=== PATIENT | female | born 1965 | race African-American/Black ===

== ENCOUNTER 2016-12-30 12:48 | Inpatient (IN) | payer MEDICAID ==
[~2016-12-30] VITALS: Ht 165.1 cm; Wt 109.8 kg
[~2016-12-30 12:48] MED LIST: FERR-43 PO; LEVA15HF4 INH
[2016-12-30] MEDS ORDERED: KETOROLAC 30MG/ML VIAL IV STA (13:32)
[2016-12-30 14:27] LABS: BASOPHILS % 1.5 % (0.0-2.0); HEMATOCRIT. 21.4 % (36.0-48.0); LYMPHOCYTES % 28.3 % (20.0-50.0); MEAN CORPUSCULAR HEMOGLOBIN 22.3 pg (28.0-32.0); MEAN CORPUSCULAR VOLUME 73.5 fL (81.0-99.0); MEAN PLATELET VOLUME 7.5 fl (7.4-10.4); MONOCYTES % 8.2 % (2.0-8.0); PLATELET 497 x1000/uL (130-400); RED BLOOD CELL COUNT 2.91 mill/uL (4.2-5.4); RED CELL DISTRIBUTION WIDTH 18.9 % (11.6-14.6)
[2016-12-30 14:29] LABS: CHLORIDE 103 mEq/L (98-107)
[2016-12-30 14:32] LABS: D-DIMER 0.39 mg/L FEU (<0.50); PROTHROMBIN TIME 10.1 sec (9.4-11.6)
[2016-12-30 14:41] LABS: HCG SCREEN NEGATIVE
[2016-12-30 14:44] LABS: CARBON DIOXIDE 33 mEq/L (21-32)
[2016-12-30 14:47] LABS: HEMOGLOBIN. 6.5 g/dL (12.0-16.0)
[2016-12-30] MEDS ORDERED: CLONIDINE 0.1MG TABLET PO PRN (16:15)
[2016-12-30] MEDS ORDERED: LORAZEPAM 2MG/ML CPJ IV PRN (16:15)
[2016-12-30] MEDS ORDERED: DIPHENHYDRAMINE 50MG/ML VIAL IV PRN (16:15)
[2016-12-30] MEDS ORDERED: NITROGLYCERIN 0.4MG TABLET SL SL PRN (16:15)
[2016-12-30] MEDS ORDERED: MAGNESIUM/ALUMINUM HYDROXIDE/SIMETHICONE 30ML UDC PO PRN (16:15)
[2016-12-30] MEDS ORDERED: NA PHOS,M-B/NA PHOS,DI-BA ENEMA 118ML PR PRN (16:15)
[2016-12-30] MEDS ORDERED: ZOLPIDEM TARTRATE 5MG TABLET PO PRN (16:15)
[2016-12-30] MEDS ORDERED: KETOROLAC 15MG/ML VIAL IV PRN (16:15)
[2016-12-30] MEDS ORDERED: IPRATROPIUM/ALBUTEROL 0.5-3(2.5)MG/3ML NEB INH PRN (16:15)
[2016-12-30] MEDS ORDERED: GUAIFENESIN 200MG/10ML SUGAR FREE UDC PO PRN (16:15)
[2016-12-30] MEDS ORDERED: ONDANSETRON HCL 4MG/2ML VIAL IV PRN (16:15)
[2016-12-30] MEDS ORDERED: DOCUSATE SODIUM 100MG CAPSULE PO PRN (16:15)
[2016-12-30] MEDS ORDERED: ACETAMINOPHEN 325MG TABLET PO PRN (16:15)
[2016-12-30 17:11] LABS: FOLIC ACID (FOLATE) SERUM 5.8 ng/mL (>5.38)
[2016-12-30 21:00] VITALS: BP 149/80
[2016-12-30 23:35] VITALS: BP 142/81
[2016-12-31] VITALS: BP_SYST 128; BP_SYST 142; BP_DIAS 65; BP_DIAS 81
[2016-12-31 00:35] VITALS: BP 125/75
[2016-12-31 01:30] VITALS: BP 126/62
[2016-12-31 02:15] VITALS: BP 136/67
[2016-12-31 04:00] VITALS: BP 129/68
[2016-12-31 07:00] LABS: HEMATOCRIT 25.9 % (36.0-48.0)
[2016-12-31 08:00] VITALS: BP 127/68
[2016-12-31] MEDS ORDERED: PANTOPRAZOLE SODIUM 40 MG/VIAL IV SCH (09:00)
== END 2016-12-31 12:00 | disposition home or self-care (01) | DRG 203 ==
LOC: ER 13:56 → 7WST 15:42 → EDBEDREQ 15:44 → ENRESERV 19:31 → 7WST 22:13
PROVIDERS: ADMIT Internal Medicine; ATTEND Internal Medicine
PROC: 30233N1 Transfusion of Nonautologous Red Blood Cells into Peripheral Vein, Percutaneous Approach (ICD-10-PCS; principal; 2016-12-30)
DX: R07.89 Other chest pain (principal); E44.1 Mild protein-calorie malnutrition; D64.9 Anemia, unspecified; E66.9 Obesity, unspecified; J45.909 Unspecified asthma, uncomplicated; N92.0 Excessive and frequent menstruation with regular cycle; Z90.49 Acquired absence of other specified parts of digestive tract; Z79.899 Other long term (current) drug therapy; Z68.41 Body mass index [BMI] 40.0-44.9, adult; D25.9 Leiomyoma of uterus, unspecified
CPT/HCPCS: 36415; 71010; 76830; 76856; 80053; 80061; 82607; 82746; 83036; 83540; 83550; 84703; 85014; 85018; 85025; 85379; 85610; 86850; 86900; 86920; 93005; 93970; 96374; 99285; C9113; J1885; J7050; P9016

== ENCOUNTER 2017-04-13 14:25 | Emergency (ER) | payer MEDICAID ==
[~2017-04-13] VITALS: Ht 162.6 cm; Wt 109.0 kg
[2017-04-13] MEDS ORDERED: PREDNISONE 20MG TABLET PO STA (15:34)
[2017-04-13] MEDS ORDERED: IPRATROPIUM BROMIDE (0.02%) 0.5MG/2.5ML NEB HHN STA (15:34)
[2017-04-13] MEDS ORDERED: ALBUTEROL (0.083%) 2.5MG/3ML NEB HHN STA (15:34)
[2017-04-13 16:03] LABS: BASOPHILS % 1.3 % (0.0-2.0); EOSINOPHILS % 3.3 % (0.0-5.0); HEMATOCRIT. 27.4 % (36.0-48.0); LYMPHOCYTES % 36.6 % (20.0-50.0); MEAN CORPUSCULAR HEMOGLOBIN 27.9 pg (28.0-32.0); MEAN CORPUSCULAR VOLUME 85.4 fL (81.0-99.0); MEAN PLATELET VOLUME 7.3 fl (7.4-10.4); MONOCYTES % 7.5 % (2.0-8.0); NEUTROPHILS % 51.3 % (40.0-76.0); PLATELET 380 x1000/uL (130-400); RED BLOOD CELL COUNT 3.21 mill/uL (4.2-5.4); RED CELL DISTRIBUTION WIDTH 14.9 % (11.6-14.6)
[2017-04-13 16:14] LABS: CARBON DIOXIDE 33 mEq/L (21-32); CHLORIDE 104 mEq/L (98-107)
[2017-04-13 18:00] VITALS: BP 142/75
== END 2017-04-13 18:02 | disposition home or self-care (01) ==
LOC: ER 15:00
DX: J45.901 Unspecified asthma with (acute) exacerbation (principal); D64.9 Anemia, unspecified; R06.02 Shortness of breath
CPT/HCPCS: 36415; 80053; 85025; 93005; 94640; 99285; J7512; J7611

== ENCOUNTER 2017-04-17 17:19 | Emergency (ER) | payer MEDICAID ==
[~2017-04-17] VITALS: Ht 162.6 cm; Wt 114.0 kg
[2017-04-17] MEDS ORDERED: IPRATROPIUM/ALBUTEROL 0.5-3(2.5)MG/3ML NEB HHN ONE (18:15)
[2017-04-17] MEDS ORDERED: METHYLPREDNISOLONE SOD SUCC 125 MG/2 ML VIAL IV ONE (18:15)
[2017-04-17 19:33] VITALS: BP 141/89
== END 2017-04-17 22:37 | disposition home or self-care (01) ==
LOC: ER 18:15
DX: J09.X2 Influenza due to identified novel influenza A virus with other respiratory manifestations (principal); J45.901 Unspecified asthma with (acute) exacerbation
CPT/HCPCS: 71045; 87804; 94640; 96374; 99285; J2930; J7620

== ENCOUNTER 2017-04-28 16:00 | Inpatient (IN) | payer MEDICAID ==
[~2017-04-28] VITALS: Ht 165.1 cm; Wt 124.3 kg
[2017-04-28] MEDS ORDERED: ASPIRIN 81MG TABLET PO STA (20:23)
[2017-04-28 20:48] LABS: BASOPHILS % 1.4 % (0.0-2.0); EOSINOPHILS % 2.9 % (0.0-5.0); HEMATOCRIT. 33.5 % (36.0-48.0); HEMOGLOBIN. 10.7 g/dL (12.0-16.0); MEAN CORPUSCULAR HEMOGLOBIN 27.6 pg (28.0-32.0); MEAN PLATELET VOLUME 6.9 fl (7.4-10.4); MONOCYTES % 6.8 % (2.0-8.0); NEUTROPHILS % 50.9 % (40.0-76.0); PLATELET 461 x1000/uL (130-400); RED BLOOD CELL COUNT 3.89 mill/uL (4.2-5.4); RED CELL DISTRIBUTION WIDTH 15.9 % (11.6-14.6)
[2017-04-28 20:49] LABS: CHLORIDE 101 mEq/L (98-107)
[2017-04-28 20:53] LABS: D-DIMER 0.28 mg/L FEU (<0.50); INR 0.9; PARTIAL THROMBOPLASTIN TIME 25.1 sec (23.4-31.0); PROTHROMBIN TIME 9.9 sec (9.4-11.6)
[2017-04-28 21:00] LABS: CARBON DIOXIDE 33 mEq/L (21-32); TROPONIN I < 0.02 ng/mL (0.00-0.04)
[2017-04-28] MEDS ORDERED: MAGNESIUM/ALUMINUM HYDROXIDE/SIMETHICONE 30ML UDC PO PRN (23:45)
[2017-04-28] MEDS ORDERED: ONDANSETRON HCL 4MG/2ML VIAL IV PRN (23:45)
[2017-04-28] MEDS ORDERED: IPRATROPIUM/ALBUTEROL 0.5-3(2.5)MG/3ML NEB INH PRN (23:45)
[2017-04-28] MEDS ORDERED: ACETAMINOPHEN 325MG TABLET PO PRN (23:45)
[2017-04-28] MEDS ORDERED: CLONIDINE 0.1MG TABLET PO PRN (23:45)
[2017-04-28] MEDS ORDERED: HYDROCODONE/ACETAMINOPHEN 5/325MG TABLET PO PRN (23:45)
[2017-04-28 23:54] LABS: CLARITY URINE CLOUDY (CLEAR); COLOR URINE YELLOW (YELLOW); KETONES URINE NEGATIVE (NEGATIVE); LEUKOCYTE ESTERASE URINE 1+ (NEGATIVE); NITRITE URINE NEGATIVE (NEGATIVE); OCCULT BLOOD URINE NEGATIVE (NEGATIVE); PH URINE 7.5 (4.5-8.0); PROTEIN URINE NEGATIVE (NEGATIVE)
[2017-04-29 00:08] LABS: *AMPHETAMINES SCREEN URINE NEGATIVE (NEGATIVE); *BARBITURATES SCREEN URINE NEGATIVE (NEGATIVE); *BENZODIAZEPINES SCREEN URINE NEGATIVE (NEGATIVE); *COCAINE SCREEN URINE NEGATIVE (NEGATIVE); CANNABINOID URINE SCREEN NEGATIVE (NEGATIVE); METHADONE URINE SCREEN NEGATIVE (NEGATIVE); OPIATES URINE SCREEN NEGATIVE (NEGATIVE); PHENCYCLIDINE URINE SCREEN NEGATIVE (NEGATIVE)
[2017-04-29 00:44] LABS: CHLORIDE 101 mEq/L (98-107)
[2017-04-29 00:49] LABS: CARBON DIOXIDE 32 mEq/L (21-32)
[2017-04-29 04:00] VITALS: BP_SYST 121; BP_DIAS 28; BP_DIAS 58
[2017-04-29 07:16] LABS: EOSINOPHILS % 3.1 % (0.0-5.0); HEMATOCRIT. 30.1 % (36.0-48.0); HEMOGLOBIN. 9.9 g/dL (12.0-16.0); MEAN CORPUSCULAR HEMOGLOBIN 28.4 pg (28.0-32.0); MEAN CORPUSCULAR VOLUME 86.3 fL (81.0-99.0); MEAN PLATELET VOLUME 7.1 fl (7.4-10.4); MONOCYTES % 9.5 % (2.0-8.0); NEUTROPHILS % 47.4 % (40.0-76.0); PLATELET 378 x1000/uL (130-400); RED BLOOD CELL COUNT 3.48 mill/uL (4.2-5.4); RED CELL DISTRIBUTION WIDTH 15.6 % (11.6-14.6)
[2017-04-29 08:08] VITALS: BP 127/68
[2017-04-29] MEDS: ASPIRIN 81MG EC TABLET PO SCH (08:15)
[2017-04-29] MEDS: ENOXAPARIN 30MG/0.3ML SYR SUBCUT SCH ×2 (08:16→21:37)
[2017-04-29 08:40] LABS: CREATINE KINASE 29 IU/L (26-192); HDL CHOLESTEROL 29 mg/dL (40-59); LDL CHOLESTEROL 120 mg/dL (5-100)
[2017-04-29 08:41] LABS: CREATINE KINASE MB FRACTION < 0.5 ng/mL (0.5-3.6); TROPONIN I < 0.02 ng/mL (0.00-0.04)
[2017-04-29] MEDS ORDERED: POTASSIUM CHLORIDE 20MEQ TABLET SR PO SCH (11:30)
[2017-04-29 12:00] VITALS: BP 118/69
[2017-04-29] MEDS: CEFTRIAXONE 1,000 MG in DEXTROSE 5% WATER 50 ML IV SCH (14:48)
[2017-04-29 16:00] VITALS: BP 121/71
[2017-04-29 16:48] LABS: CREATINE KINASE 35 IU/L (26-192); CREATINE KINASE MB FRACTION < 0.5 ng/mL (0.5-3.6); TROPONIN I < 0.02 ng/mL (0.00-0.04)
[2017-04-29 20:00] VITALS: BP 130/65
[2017-04-29] MEDS ORDERED: ATORVASTATIN CALCIUM 10MG TABLET PO SCH (21:00)
[2017-04-30] VITALS: BP 134/66
[2017-04-30 04:00] VITALS: BP 132/74
[2017-04-30 07:10] LABS: BASOPHILS % 1.2 % (0.0-2.0); EOSINOPHILS % 2.5 % (0.0-5.0); HEMATOCRIT. 31.1 % (36.0-48.0); HEMOGLOBIN. 10.2 g/dL (12.0-16.0); MEAN CORPUSCULAR HEMOGLOBIN 28.2 pg (28.0-32.0); MEAN CORPUSCULAR VOLUME 85.8 fL (81.0-99.0); MEAN PLATELET VOLUME 7.2 fl (7.4-10.4); MONOCYTES % 9.6 % (2.0-8.0); NEUTROPHILS % 50.7 % (40.0-76.0); PLATELET 381 x1000/uL (130-400); RED BLOOD CELL COUNT 3.62 mill/uL (4.2-5.4); RED CELL DISTRIBUTION WIDTH 15.5 % (11.6-14.6)
[2017-04-30 07:15] LABS: CARBON DIOXIDE 29 mEq/L (21-32); CHLORIDE 103 mEq/L (98-107)
[2017-04-30 08:00] VITALS: BP 111/57
[2017-04-30] MEDS: ASPIRIN 81MG EC TABLET PO SCH (08:01)
[2017-04-30] MEDS: ENOXAPARIN 30MG/0.3ML SYR SUBCUT SCH (08:01)
[2017-04-30] MEDS: CEFTRIAXONE 1,000 MG in DEXTROSE 5% WATER 50 ML IV SCH (08:01)
[2017-04-30 13:26] VITALS: BP 115/54
== END 2017-04-30 14:00 | disposition home or self-care (01) | DRG 198 ==
LOC: ER 16:00 → EDBEDREQ 23:36 → EDBEDREQTM 23:36 → 8WST 04-29 03:41
PROVIDERS: ADMIT Internal Medicine; ATTEND Internal Medicine
DX: I24.9 Acute ischemic heart disease, unspecified (principal); Z68.42 Body mass index [BMI] 45.0-49.9, adult; I10 Essential (primary) hypertension; N39.0 Urinary tract infection, site not specified; J45.909 Unspecified asthma, uncomplicated; E87.6 Hypokalemia; D64.9 Anemia, unspecified; Z79.899 Other long term (current) drug therapy; E66.01 Morbid (severe) obesity due to excess calories
CPT/HCPCS: 36415; 71045; 80048; 80053; 80061; 80305; 81001; 82550; 82553; 83690; 83735; 83880; 84443; 84484; 85025; 85379; 85610; 85730; 87086; 93005; 93306; 93970; 96372; 96374; 99285; J0696; J1650; J7040; J7060

== ENCOUNTER 2017-08-28 23:12 | Emergency (ER) | payer MEDICAID ==
[~2017-08-28] VITALS: Ht 165.1 cm; Wt 109.9 kg
[2017-08-29] MEDS ORDERED: ASPIRIN 81MG TABLET PO ONE (02:15)
[2017-08-29] MEDS ORDERED: VISCOUS LIDOCAINE 2% 15 ML UDC PO ONE (02:15)
[2017-08-29] MEDS ORDERED: MAGNESIUM/ALUMINUM HYDROXIDE/SIMETHICONE 30ML UDC PO ONE (02:15)
[2017-08-29 02:37] LABS: BASOPHILS % 1.1 % (0.0-2.0); HEMOGLOBIN. 8.3 g/dL (12.0-16.0); LYMPHOCYTES % 44.4 % (20.0-50.0); MEAN CORPUSCULAR HEMOGLOBIN 26.2 pg (28.0-32.0); MEAN PLATELET VOLUME 6.9 fl (7.4-10.4); MONOCYTES % 8.6 % (2.0-8.0); NEUTROPHILS % 42.9 % (40.0-76.0); PLATELET 508 x1000/uL (130-400); RED BLOOD CELL COUNT 3.17 mill/uL (4.2-5.4); RED CELL DISTRIBUTION WIDTH 17.5 % (11.6-14.6)
[2017-08-29 02:39] LABS: CHLORIDE 107 mEq/L (98-107)
[2017-08-29 02:41] LABS: PROTHROMBIN TIME 10.3 sec (9.4-11.6)
[2017-08-29 03:31] LABS: *AMPHETAMINES SCREEN URINE NEGATIVE (NEGATIVE); *BARBITURATES SCREEN URINE NEGATIVE (NEGATIVE); *BENZODIAZEPINES SCREEN URINE NEGATIVE (NEGATIVE); *COCAINE SCREEN URINE NEGATIVE (NEGATIVE); METHADONE URINE SCREEN NEGATIVE (NEGATIVE); OPIATES URINE SCREEN NEGATIVE (NEGATIVE)
[2017-08-29 03:32] LABS: CANNABINOID URINE SCREEN NEGATIVE (NEGATIVE); PHENCYCLIDINE URINE SCREEN NEGATIVE (NEGATIVE)
[2017-08-29 05:45] VITALS: BP 138/60
== END 2017-08-29 06:13 | disposition home or self-care (01) ==
LOC: ER 23:12
DX: R07.9 Chest pain, unspecified (principal); J45.909 Unspecified asthma, uncomplicated; Z79.82 Long term (current) use of aspirin
CPT/HCPCS: 36415; 71045; 80053; 80305; 83880; 84484; 85025; 85610; 93005; 99285

== ENCOUNTER 2017-09-28 01:03 | Emergency (ER) | payer MEDICAID ==
[~2017-09-28] VITALS: Ht 165.1 cm; Wt 111.0 kg
[2017-09-28] MEDS ORDERED: IBUPROFEN 400MG TABLET PO NR (02:44)
[2017-09-28] MEDS ORDERED: IBUPROFEN 400MG TABLET ONE (03:15)
[2017-09-28 05:42] LABS: CHLORIDE 104 mEq/L (98-107)
[2017-09-28 05:47] LABS: BASOPHILS % 0.8 % (0.0-2.0); EOSINOPHILS % 3.4 % (0.0-5.0); HEMATOCRIT. 24.8 % (36.0-48.0); LYMPHOCYTES % 33.7 % (20.0-50.0); MEAN CORPUSCULAR HEMOGLOBIN 25.7 pg (28.0-32.0); MEAN CORPUSCULAR VOLUME 79.9 fL (81.0-99.0); MONOCYTES % 8.7 % (2.0-8.0); NEUTROPHILS % 53.4 % (40.0-76.0); PLATELET 460 x1000/uL (130-400); RED BLOOD CELL COUNT 3.11 mill/uL (4.2-5.4); RED CELL DISTRIBUTION WIDTH 17.4 % (11.6-14.6)
[2017-09-28] MEDS ORDERED: POTASSIUM CHLORIDE 20MEQ TABLET SR PO ONE (06:15)
[2017-09-28 07:00] VITALS: BP 128/76
== END 2017-09-28 07:09 | disposition home or self-care (01) ==
LOC: ER 01:03
DX: R07.2 Precordial pain (principal); E87.6 Hypokalemia; R06.02 Shortness of breath; J45.909 Unspecified asthma, uncomplicated
CPT/HCPCS: 36415; 71045; 80048; 84484; 85025; 93005; 99285

== ENCOUNTER 2017-12-28 18:46 | Emergency (ER) | payer MEDICAID ==
[~2017-12-28 18:46] MED LIST changes: +FERR325T23 PO; +FOLI-43 PO; +THIA100T72 PO
== END 2017-12-28 20:00 | disposition left against medical advice (07) ==
LOC: ER 18:46
DX: R53.1 Weakness (principal); Z53.21 Procedure and treatment not carried out due to patient leaving prior to being seen by health care provider

== ENCOUNTER 2017-12-29 15:46 | Emergency (ER) | payer MEDICAID ==
[~2017-12-29] VITALS: Ht 165.1 cm; Wt 106.8 kg
[2017-12-29 19:50] LABS: BASOPHILS % 1.2 % (0.0-2.0); EOSINOPHILS % 2.6 % (0.0-5.0); LYMPHOCYTES % 28.5 % (20.0-50.0); MEAN CORPUSCULAR HEMOGLOBIN 27.5 pg (28.0-32.0); MEAN CORPUSCULAR VOLUME 86.2 fL (81.0-99.0); MEAN PLATELET VOLUME 7.2 fl (7.4-10.4); MONOCYTES % 5.3 % (2.0-8.0); NEUTROPHILS % 62.4 % (40.0-76.0); PLATELET 622 x1000/uL (130-400); RED CELL DISTRIBUTION WIDTH 20.4 % (11.6-14.6)
[2017-12-29 19:54] LABS: CHLORIDE 102 mEq/L (98-107)
[2017-12-29 20:06] LABS: HCG SCREEN NEGATIVE
[2017-12-29] MEDS ORDERED: POTASSIUM CHLORIDE 20MEQ TABLET SR PO NR (20:15)
[2017-12-29 22:41] VITALS: BP 124/62
== END 2017-12-29 22:43 | disposition home or self-care (01) ==
LOC: ER 16:43 → EDBEDREQ 19:29 → ER 22:43 → CANBEDREQ 12-30 01:42
DX: R53.1 Weakness (principal); D64.9 Anemia, unspecified; E87.6 Hypokalemia; J45.909 Unspecified asthma, uncomplicated; R03.0 Elevated blood-pressure reading, without diagnosis of hypertension; D25.9 Leiomyoma of uterus, unspecified; Z90.49 Acquired absence of other specified parts of digestive tract; Z98.890 Other specified postprocedural states
CPT/HCPCS: 36415; 80053; 83880; 84484; 84703; 85025; 86850; 86900; 86901; 93005; 99285; Z7610

== ENCOUNTER 2018-02-26 16:55 | Emergency (ER) | payer MEDICAID ==
[~2018-02-26] VITALS: Ht 165.1 cm; Wt 111.0 kg
[2018-02-26 18:44] LABS: BASOPHILS % 1.4 % (0.0-2.0); EOSINOPHILS % 3.3 % (0.0-5.0); HEMATOCRIT. 27.6 % (36.0-48.0); HEMOGLOBIN. 8.6 g/dL (12.0-16.0); LYMPHOCYTES % 31.6 % (20.0-50.0); MEAN CORPUSCULAR HEMOGLOBIN 25.6 pg (28.0-32.0); MEAN CORPUSCULAR VOLUME 82.1 fL (81.0-99.0); MEAN PLATELET VOLUME 7.5 fl (7.4-10.4); MONOCYTES % 9.2 % (2.0-8.0); NEUTROPHILS % 54.5 % (40.0-76.0); PLATELET 445 x1000/uL (130-400); RED BLOOD CELL COUNT 3.36 mill/uL (4.2-5.4); RED CELL DISTRIBUTION WIDTH 18.3 % (11.6-14.6)
[2018-02-26 18:46] LABS: CHLORIDE 105 mEq/L (98-107)
[2018-02-26 18:47] LABS: PROTHROMBIN TIME 10.1 sec (9.1-11.1)
[2018-02-26 20:39] VITALS: BP 143/78
== END 2018-02-26 20:39 | disposition home or self-care (01) ==
LOC: ER 16:55
DX: D64.9 Anemia, unspecified (principal); D25.9 Leiomyoma of uterus, unspecified; R03.0 Elevated blood-pressure reading, without diagnosis of hypertension
CPT/HCPCS: 36415; 86850; 86900; 99284

== ENCOUNTER 2018-10-17 13:39 | Emergency (ER) | payer MEDICAID ==
[~2018-10-17] VITALS: Ht 165.1 cm; Wt 107.0 kg
[2018-10-17] MEDS ORDERED: ALBUTEROL (0.083%) 2.5MG/3ML NEB HHN STA (16:06)
[2018-10-17] MEDS ORDERED: IPRATROPIUM BROMIDE (0.02%) 0.5MG/2.5ML NEB HHN STA (16:06)
[2018-10-17] MEDS ORDERED: ASPIRIN 81MG TABLET PO ONE (16:15)
[2018-10-17 16:36] LABS: EOSINOPHILS % 2.8 % (0.0-5.0); HEMATOCRIT. 28.4 % (36.0-48.0); HEMOGLOBIN. 8.7 g/dL (12.0-16.0); LYMPHOCYTES % 33.8 % (20.0-50.0); MEAN CORPUSCULAR HEMOGLOBIN 23.9 pg (28.0-32.0); MEAN PLATELET VOLUME 7.5 fl (7.4-10.4); NEUTROPHILS % 53.4 % (40.0-76.0); PLATELET 550 x1000/uL (130-400); RED BLOOD CELL COUNT 3.64 mill/uL (4.2-5.4)
[2018-10-17 16:41] LABS: CHLORIDE 104 mEq/L (98-107)
[2018-10-17] MEDS ORDERED: VISCOUS LIDOCAINE 2% 15 ML UDC PO ONE (17:30)
[2018-10-17] MEDS ORDERED: MAGNESIUM/ALUMINUM HYDROXIDE/SIMETHICONE 30ML UDC PO ONE (17:30)
[2018-10-17] MEDS ORDERED: KETOROLAC 30MG/ML VIAL IV ONE (17:30)
[2018-10-17 18:47] VITALS: BP 127/56
[2018-10-17] MEDS ORDERED: PREDNISONE 20MG TABLET PO ONE (19:00)
== END 2018-10-17 19:22 | disposition home or self-care (01) ==
LOC: ER 13:39
DX: J45.901 Unspecified asthma with (acute) exacerbation (principal); D64.9 Anemia, unspecified
CPT/HCPCS: 36415; 71045; 80053; 83880; 84484; 85025; 93005; 94640; 99284; J7512; J7611; Z7610

== ENCOUNTER 2018-11-10 13:23 | Emergency (ER) | payer MEDICAID ==
[~2018-11-10] VITALS: Ht 165.1 cm; Wt 104.0 kg
[2018-11-10] MEDS ORDERED: METHYLPREDNISOLONE SOD SUCC 125 MG/2 ML VIAL IV STA (14:18)
[2018-11-10] MEDS ORDERED: SODIUM CHLORIDE 0.9% 1,000 ML IV ONE (14:18)
[2018-11-10] MEDS ORDERED: LEVOFLOXACIN 500MG PREMIX 100 ML IV ONE (14:30)
[2018-11-10] MEDS ORDERED: KETOROLAC 30MG/ML VIAL IV ONE (14:30)
[2018-11-10] MEDS ORDERED: MORPHINE SULFATE 4 MG/ML CPJ (NOT FOR IM USE) IV ONE (14:30)
[2018-11-10] MEDS ORDERED: IPRATROPIUM/ALBUTEROL 0.5-3(2.5)MG/3ML NEB HHN ONE (14:30)
[2018-11-10] MEDS ORDERED: ONDANSETRON HCL 4MG/2ML INJ IV ONE (14:30)
[2018-11-10] MEDS ORDERED: LEVOFLOXACIN 500MG TABLET PO ONE (15:00)
[2018-11-10] MEDS ORDERED: PREDNISONE 20MG TABLET PO ONE (15:00)
[2018-11-10 15:11] LABS: CHLORIDE 106 mEq/L (98-107)
[2018-11-10 15:15] LABS: ETHANOL BLOOD < 10 mg/dL
[2018-11-10 15:17] LABS: BASOPHILS % 1.5 % (0.0-2.0); EOSINOPHILS % 3.8 % (0.0-5.0); HEMATOCRIT. 25.8 % (36.0-48.0); MEAN CORPUSCULAR HEMOGLOBIN 25.4 pg (28.0-32.0); MEAN CORPUSCULAR VOLUME 82.1 fL (81.0-99.0); MEAN PLATELET VOLUME 7.2 fl (7.4-10.4); MONOCYTES % 6.7 % (2.0-8.0); PLATELET 455 x1000/uL (130-400); RED BLOOD CELL COUNT 3.14 mill/uL (4.2-5.4); RED CELL DISTRIBUTION WIDTH 21.9 % (11.6-14.6)
[2018-11-10 17:28] VITALS: BP 121/74
== END 2018-11-10 17:29 | disposition home or self-care (01) ==
LOC: ER 13:23
DX: R07.2 Precordial pain (principal); J45.909 Unspecified asthma, uncomplicated
CPT/HCPCS: 36415; 71045; 80053; 80320; 83690; 83880; 84484; 85025; 87040; 93005; 94640; 99284; J7030; J7512; J7620; Z7610; G0480

== ENCOUNTER 2019-04-16 13:09 | Emergency (ER) | payer MEDICAID ==
[~2019-04-16] VITALS: Ht 165.1 cm; Wt 106.0 kg
[2019-04-16] MEDS ORDERED: IPRATROPIUM BROMIDE (0.02%) 0.5MG/2.5ML NEB HHN STA (18:39)
[2019-04-16] MEDS ORDERED: ALBUTEROL (0.083%) 2.5MG/3ML NEB HHN STA (18:39)
[2019-04-16] MEDS ORDERED: PREDNISONE 20MG TABLET PO STA (18:39)
[2019-04-16 19:34] LABS: BASOPHILS % 1.1 % (0.0-2.0); EOSINOPHILS % 2.7 % (0.0-5.0); HEMATOCRIT. 32.2 % (36.0-48.0); HEMOGLOBIN. 10.6 g/dL (12.0-16.0); LYMPHOCYTES % 35.6 % (20.0-50.0); MEAN CORPUSCULAR HEMOGLOBIN 27.3 pg (28.0-32.0); MEAN CORPUSCULAR VOLUME 82.8 fL (81.0-99.0); MEAN PLATELET VOLUME 7.3 fl (7.4-10.4); MONOCYTES % 8.3 % (2.0-8.0); NEUTROPHILS % 52.3 % (40.0-76.0); PLATELET 351 x1000/uL (130-400); RED BLOOD CELL COUNT 3.88 mill/uL (4.2-5.4)
[2019-04-16 19:47] LABS: CHLORIDE 110 mEq/L (98-107)
[2019-04-16 21:17] VITALS: BP 159/79
== END 2019-04-16 21:18 | disposition home or self-care (01) ==
LOC: ER 13:14
DX: J45.901 Unspecified asthma with (acute) exacerbation (principal); D64.9 Anemia, unspecified; Z90.49 Acquired absence of other specified parts of digestive tract; Z98.890 Other specified postprocedural states; Z79.899 Other long term (current) drug therapy
CPT/HCPCS: 36415; 71045; 80053; 83880; 84484; 85025; 93005; 94640; 99284; J7512; J7611; Z7610

== ENCOUNTER 2020-02-16 13:44 | Emergency (ER) | payer MEDICAID ==
[~2020-02-16] VITALS: Ht 165.1 cm; Wt 113.0 kg
[2020-02-16] MEDS ORDERED: SODIUM CHLORIDE 0.9% 1,000 ML IV ONE (14:30)
[2020-02-16 15:01] LABS: BASOPHILS % 1.5 % (0.0-2.0); EOSINOPHILS % 3.8 % (0.0-5.0); HEMATOCRIT. 28.9 % (36.0-48.0); HEMOGLOBIN. 8.7 g/dL (12.0-16.0); LYMPHOCYTES % 34.9 % (20.0-50.0); MEAN CORPUSCULAR HEMOGLOBIN 23.5 pg (28.0-32.0); MEAN CORPUSCULAR VOLUME 78.2 fL (81.0-99.0); MEAN PLATELET VOLUME 6.9 fl (7.4-10.4); MONOCYTES % 9.4 % (2.0-8.0); NEUTROPHILS % 50.4 % (40.0-76.0); PLATELET 610 x1000/uL (130-400)
[2020-02-16 15:10] LABS: CHLORIDE 104 mEq/L (98-107); PROTHROMBIN TIME 10.2 sec (9.6-11.0)
[2020-02-16 15:33] LABS: CLARITY URINE CLEAR (CLEAR); COLOR URINE YELLOW (YELLOW); KETONES URINE NEGATIVE (NEGATIVE); LEUKOCYTE ESTERASE URINE NEGATIVE (NEGATIVE); NITRITE URINE NEGATIVE (NEGATIVE); OCCULT BLOOD URINE NEGATIVE (NEGATIVE); PH URINE 7.5 (4.5-8.0); PROTEIN URINE NEGATIVE (NEGATIVE); UROBILINOGEN URINE 0.2 E.U./dL (0.2-1.0)
[2020-02-16 16:02] LABS: CANNABINOID URINE SCREEN NEGATIVE (NEGATIVE); PHENCYCLIDINE URINE SCREEN NEGATIVE (NEGATIVE)
[2020-02-16 16:03] LABS: *AMPHETAMINES SCREEN URINE NEGATIVE (NEGATIVE); *BARBITURATES SCREEN URINE NEGATIVE (NEGATIVE); *BENZODIAZEPINES SCREEN URINE NEGATIVE (NEGATIVE); *COCAINE SCREEN URINE NEGATIVE (NEGATIVE); METHADONE URINE SCREEN NEGATIVE (NEGATIVE); OPIATES URINE SCREEN NEGATIVE (NEGATIVE)
[2020-02-16 16:52] VITALS: BP 130/78
[2020-02-16 20:46] LABS: PLATELET ESTIMATE INCREASED
== END 2020-02-16 16:53 | disposition home or self-care (01) ==
LOC: ER 13:44
DX: D50.9 Iron deficiency anemia, unspecified (principal); J45.909 Unspecified asthma, uncomplicated; Z79.899 Other long term (current) drug therapy; Z90.49 Acquired absence of other specified parts of digestive tract
CPT/HCPCS: 36415; 71045; 80053; 80305; 81003; 83605; 83690; 85025; 85610; 86850; 86900; 86901; 93005; 99285; J7030

== ENCOUNTER 2022-02-16 14:58 | Emergency (ER) | payer MEDICAID ==
[~2022-02-16] VITALS: Ht 165.1 cm; Wt 80.0 kg
[2022-02-16 15:05] VITALS: BP 146/79
== END 2022-02-16 18:14 | disposition left against medical advice (07) ==
LOC: ER 14:58
DX: Z53.21 Procedure and treatment not carried out due to patient leaving prior to being seen by health care provider (principal); R07.9 Chest pain, unspecified; R06.02 Shortness of breath
CPT/HCPCS: 93005; 99283

== ENCOUNTER 2022-03-25 09:38 | Emergency (ER) | payer MEDICAID ==
[~2022-03-25] VITALS: Ht 165.1 cm; Wt 110.0 kg
[2022-03-25] MEDS ORDERED: NITROGLYCERIN 0.4MG TABLET SL SL PRN (11:45)
[2022-03-25] MEDS ORDERED: ASPIRIN 81MG TABLET PO ONE (11:45)
[2022-03-25 11:58] LABS: BASOPHILS % 1.3 % (0.0-2.0); EOSINOPHILS % 3.4 % (0.0-5.0); HEMATOCRIT. 26.8 % (36.0-48.0); HEMOGLOBIN. 8.6 g/dL (12.0-16.0); LYMPHOCYTES % 34.6 % (20.0-50.0); MEAN CORPUSCULAR HEMOGLOBIN 26.8 pg (28.0-32.0); MEAN CORPUSCULAR VOLUME 83.3 fL (81.0-99.0); MEAN PLATELET VOLUME 7.3 fl (7.4-10.4); MONOCYTES % 10.9 % (2.0-8.0); NEUTROPHILS % 49.8 % (40.0-76.0); PLATELET 404 x1000/uL (130-400); RED BLOOD CELL COUNT 3.21 mill/uL (4.2-5.4); RED CELL DISTRIBUTION WIDTH 18.7 % (11.6-14.6)
[2022-03-25 12:09] LABS: CHLORIDE 107 mEq/L (98-107)
[2022-03-25 14:49] VITALS: BP 130/89
== END 2022-03-25 14:51 | disposition home or self-care (01) ==
LOC: ER 09:45
DX: R07.89 Other chest pain (principal); R03.0 Elevated blood-pressure reading, without diagnosis of hypertension; Z20.822 Contact with and (suspected) exposure to COVID-19
CPT/HCPCS: 36415; 71045; 80053; 83880; 84484; 85025; 87426; 87804; 93005; 99285; C9803; Z7610

== ENCOUNTER 2023-04-28 01:21 | Emergency (ER) | payer BC, MEDICAID ==
[~2023-04-28] VITALS: Ht 170.2 cm; Wt 91.0 kg
[2023-04-28 01:51] VITALS: BP 167/82; PULSE 75; RESP 18; TEMP 98.5; O2SAT 97
[2023-04-28 02:31] LABS: BASOPHILS % 1.4 % (0.0-2.0); EOSINOPHILS % 4.4 % (0.0-5.0); HEMATOCRIT. 31.6 % (36.0-48.0); HEMOGLOBIN. 10.1 g/dL (12.0-16.0); MEAN CORPUSCULAR HEMOGLOBIN 26.1 pg (28.0-32.0); MEAN CORPUSCULAR VOLUME 81.5 fL (81.0-99.0); MEAN PLATELET VOLUME 7.5 fl (7.4-10.4); MONOCYTES % 8.5 % (2.0-8.0); NEUTROPHILS % 45.7 % (40.0-76.0); PLATELET 449 x1000/uL (130-400); RED BLOOD CELL COUNT 3.87 mill/uL (4.2-5.4); RED CELL DISTRIBUTION WIDTH 15.7 % (11.6-14.6); WHITE BLOOD COUNT 5.9 x1000/uL (4.5-11.0)
[2023-04-28 02:45] LABS: ALANINE AMINOTRANSFERASE 14 IU/L (10-49); ASPARTATE AMINOTRANSFERASE 21 IU/L (<34); BILIRUBIN TOTAL 0.4 mg/dL (0.1-1.0); CALCIUM 9.2 mg/dL (8.7-10.4); CARBON DIOXIDE 29 mEq/L (21-32); CHLORIDE 104 mEq/L (98-107); CREATININE 0.8 mg/dL (0.6-1.0); GLUCOSE 172 mg/dL (70-105); POTASSIUM 3.2 mEq/L (3.5-5.1); PROTEIN TOTAL 7.9 g/dL (6.0-8.3); SODIUM 141 mEq/L (136-145); TROPONIN I HIGH SENSITIVITY 4 ng/L (3.0-34); UREA NITROGEN BLOOD 8 mg/dL (9-23)
[2023-04-28] MEDS ORDERED: MORPHINE SULFATE 4 MG/ML CPJ (NOT FOR IM USE) IV STA (06:06)
== END 2023-04-28 07:37 | disposition left against medical advice (07) ==
LOC: ER 01:21 → EDBEDREQ 06:58 → EDBEDREQTM 06:58 → CANBEDREQ 07:36 → ER 07:37
DX: R07.89 Other chest pain (principal); I10 Essential (primary) hypertension; J45.909 Unspecified asthma, uncomplicated; Z90.49 Acquired absence of other specified parts of digestive tract; Z98.890 Other specified postprocedural states
CPT/HCPCS: 36415; 71045; 80053; 83880; 84484; 85025; 93005; 99285